=== PATIENT | female | born 1940 | race Caucasian/White ===

== ENCOUNTER 2016-10-05 11:35 | Inpatient (IN) | payer OTHER, MEDICARE ==
[~2016-10-05] VITALS: Ht 162.6 cm; Wt 93.9 kg
[2016-10-05 11:35] VITALS: BP 131/77; PULSE 116; RESP 16; TEMP 98.2; O2SAT 85
[2016-10-05] MEDS ORDERED: ALBUTEROL SULFATE 0.083% 2.5 MG/3 ML VIAL.NEB INH ONE (11:47)
[2016-10-05] MEDS ORDERED: IPRATROPIUM BROM 0.5 MG/2.5 ML VIAL.NEB (ATROVENT) INH ONE (11:47)
[2016-10-05] MEDS ORDERED: ALBUTEROL SULFATE 0.083% 2.5 MG/3 ML VIAL.NEB IH ONE (12:00)
[2016-10-05] MEDS ORDERED: methylPREDNISolone SOD SUCC/PF 62.5 MG/ML VIAL IVP ONE (12:00)
[2016-10-05] MEDS ORDERED: IPRATROPIUM BROM 0.5 MG/2.5 ML VIAL.NEB (ATROVENT) IH ONE (12:00)
[2016-10-05] MEDS ORDERED: MAGNESIUM SULFATE 50 ML IV ONE (12:00)
[2016-10-05] MEDS ORDERED: TRIA1CAP53 PO (12:14)
[2016-10-05] MEDS ORDERED: PRED20TA PO (12:14)
[2016-10-05] MEDS ORDERED: DILT180C69 PO (12:14)
[2016-10-05] MEDS ORDERED: GLUXR500 PO (12:14)
[2016-10-05] MEDS ORDERED: CAT.2 PO (12:14)
[2016-10-05] MEDS ORDERED: VALS320T10 PO (12:14)
[2016-10-05] MEDS ORDERED: ASPI325T2 PO (12:14)
[2016-10-05 12:26] LABS: BLOOD GAS PH 7.438 (7.350-7.450)
[2016-10-05 12:27] LABS: ABG TOTAL HEMOGLOBIN 18.3 G/dL (12.0-18.0); BLOOD GAS COHb% 1.5 % (0.5-1.5); BLOOD GAS HHB 21.5 % (0.0-6.0); BLOOD O2Hb% 76.9 % (94.0-97.0)
[2016-10-05 12:32] LABS: ANION GAP 9 (5-15); CALCIUM 8.8 mg/dL (8.4-11.0); CHLORIDE 94 mmol/L (98-107); GLUCOSE 143 mg/dL (70-99); POTASSIUM 3.9 mmol/L (3.5-5.1); SODIUM SERUM 132 mmol/L (136-145); UREA NITROGEN, BLOOD 20 mg/dL (8-21)
[2016-10-05 12:37] LABS: ALANINE AMINOTRANSFERASE 37 U/L (12-78); ALBUMIN 2.9 g/dL (3.4-4.8); ASPARTATE AMINOTRANSFERASE 49 U/L (10-37); TOTAL BILIRUBIN 0.4 mg/dL (0.0-1.0)
[2016-10-05 13:03] LABS: BASOPHILS % (AUTO) 0.1 % (0.0-2.0); HEMATOCRIT 52.8 % (36-48); HEMOGLOBIN 16.9 g/dL (12.0-16.0); LYMPHOCYTES # (AUTO) 1.8 K/uL (1.0-5.5); LYMPHOCYTES % (AUTO) 18.2 % (20.5-51.5); MEAN CORPUSCULAR HEMOGLOBIN 28 pg (27-31); MEAN CORPUSCULAR HGB CONC 32 % (32-36); MEAN CORPUSCULAR VOLUME 86 fL (79.0-98.0); MONOCYTES # (AUTO) 1.1 K/uL (0.0-1.0); MONOCYTES % (AUTO) 11.5 % (1.7-9.3); NEUTROPHILS # (AUTO) 6.9 K/uL (1.8-7.7); NEUTROPHILS % (AUTO) 70.2 % (40.0-70.0); PLATELET COUNT (AUTO) 116 K/uL (130-430); RED BLOOD CELL COUNT(AUTO) 6.13 MIL/uL (4.2-6.2); RED CELL DISTRIBUTION WIDTH 17.1 % (9.0-15.0); WHITE BLOOD COUNT (AUTO) 9.8 K/uL (4.8-10.8)
[2016-10-05] MEDS ORDERED: DEXTROSE 50% JECT 50 ML DISP.SYRIN IVP PRN ×2 (19:15→19:30)
[2016-10-05] MEDS ORDERED: ACETAMINOPHEN 325 MG TABLET PO PRN (19:15)
[2016-10-05] MEDS ORDERED: ONDANSETRON HCL 4 MG/2 ML VIAL IVP PRN (19:15)
[2016-10-05] MEDS ORDERED: IPRATROPIUM/ALBUTEROL SULFATE 3 ML AMPUL.NEB INH PRN (19:15)
[2016-10-05] MEDS ORDERED: ZOLPIDEM TARTRATE 5 MG TABLET PO PRN (19:30)
[2016-10-05] MEDS ORDERED: INSULIN REGULAR, HUMAN 100 UNITS/ML, 10 ML VIAL (novoLIN R) SUBCUT PRN (19:30)
[2016-10-05 19:40] VITALS: BP 125/71; PULSE 94; RESP 18; TEMP 96.9
[2016-10-05] MEDS: methylPREDNISolone SOD SUCC 40 MG/ML VIAL IVP SCH (20:22)
[2016-10-05] MEDS: cefTRIAXone 1 GM IVPB PREMIX 50 ML IV SCH (20:22)
[2016-10-05] MEDS: cloNIDine HCL 0.2 MG TABLET PO SCH (20:23)
[2016-10-05] MEDS: ASPIRIN 325 MG TABLET PO SCH (20:23)
[2016-10-05] MEDS: ENOXAPARIN SODIUM 40 MG/0.4 ML SYRINGE SUBCUT SCH (20:23)
[2016-10-05] MEDS: VALSARTAN 160 MG TABLET (DIOVAN) PO SCH (20:24)
[2016-10-05] MEDS: AZITHROMYCIN 250 MG TABLET PO SCH (21:34)
[2016-10-05 21:36] VITALS: BP 130/62; PULSE 94
[2016-10-05] MEDS: INSULIN REGULAR, HUMAN 100 UNITS/ML, 10 ML VIAL (novoLIN R) SUBCUT PRN (21:37)
[2016-10-05] MEDS: IPRATROPIUM/ALBUTEROL SULFATE 3 ML AMPUL.NEB INH SCH (23:27)
[2016-10-06] VITALS (7 sets, daily range): BP systolic 126–152; BP diastolic 72–90; PULSE 94–106; RESP 16–20; TEMP 96.6–98.4; O2SAT 88–98; Ht 162.6 cm; Wt 93.9 kg
[2016-10-06] MEDS: IPRATROPIUM/ALBUTEROL SULFATE 3 ML AMPUL.NEB INH SCH ×6 (03:25→23:30)
[2016-10-06 04:02] LABS: ANION GAP 7 (5-15); CALCIUM 8.7 mg/dL (8.4-11.0); CHLORIDE 98 mmol/L (98-107); CREATININE 0.85 mg/dL (0.55-1.30); GLUCOSE 224 mg/dL (70-99); POTASSIUM 4.1 mmol/L (3.5-5.1); SODIUM SERUM 137 mmol/L (136-145); UREA NITROGEN, BLOOD 32 mg/dL (8-21)
[2016-10-06 04:11] LABS: ALANINE AMINOTRANSFERASE 35 U/L (12-78); ALBUMIN 2.6 g/dL (3.4-4.8); ASPARTATE AMINOTRANSFERASE 42 U/L (10-37); TOTAL BILIRUBIN 0.3 mg/dL (0.0-1.0); TOTAL PROTEIN, SERUM 6.8 g/dL (6.4-8.3)
[2016-10-06] MEDS: INSULIN REGULAR, HUMAN 100 UNITS/ML, 10 ML VIAL (novoLIN R) SUBCUT PRN ×4 (06:19→22:40)
[2016-10-06 07:22] LABS: BASOPHILS % (AUTO) 0.2 % (0.0-2.0); HEMATOCRIT 52.3 % (36-48); HEMOGLOBIN 16.3 g/dL (12.0-16.0); LYMPHOCYTES # (AUTO) 1.8 K/uL (1.0-5.5); LYMPHOCYTES % (AUTO) 24.7 % (20.5-51.5); MEAN CORPUSCULAR HEMOGLOBIN 27 pg (27-31); MEAN CORPUSCULAR HGB CONC 31 % (32-36); MEAN CORPUSCULAR VOLUME 87 fL (79.0-98.0); MONOCYTES # (AUTO) 0.3 K/uL (0.0-1.0); MONOCYTES % (AUTO) 3.9 % (1.7-9.3); NEUTROPHILS # (AUTO) 5.1 K/uL (1.8-7.7); NEUTROPHILS % (AUTO) 71.2 % (40.0-70.0); PLATELET COUNT (AUTO) 129 K/uL (130-430); RED BLOOD CELL COUNT(AUTO) 6.01 MIL/uL (4.2-6.2); RED CELL DISTRIBUTION WIDTH 16.8 % (9.0-15.0); WHITE BLOOD COUNT (AUTO) 7.2 K/uL (4.8-10.8)
[2016-10-06] MEDS: methylPREDNISolone SOD SUCC 40 MG/ML VIAL IVP SCH ×3 (08:49→23:25)
[2016-10-06] MEDS: cloNIDine HCL 0.2 MG TABLET PO SCH ×2 (08:49→22:28)
[2016-10-06] MEDS: TRIAMTERENE/HYDROCHLOROTHIAZID 1 CAP CAPSULE (DYAZIDE37.5/25) PO SCH (08:49)
[2016-10-06] MEDS: AZITHROMYCIN 250 MG TABLET PO SCH (08:49)
[2016-10-06] MEDS: ASPIRIN 325 MG TABLET PO SCH (08:49)
[2016-10-06] MEDS: DILTIAZEM HCL 180 MG CAP.SR.24H PO SCH (08:50)
[2016-10-06] MEDS ORDERED: THIAMINE HCL 100 MG in NS 50 ML IV ONE (17:45)
[2016-10-06] MEDS: cefTRIAXone 1 GM IVPB PREMIX 50 ML IV SCH (18:24)
[2016-10-06] MEDS: ENOXAPARIN SODIUM 40 MG/0.4 ML SYRINGE SUBCUT SCH (22:27)
[2016-10-06] MEDS: VALSARTAN 160 MG TABLET (DIOVAN) PO SCH (22:28)
[2016-10-07] MEDS: IPRATROPIUM/ALBUTEROL SULFATE 3 ML AMPUL.NEB INH SCH ×3 (03:00→11:40)
[2016-10-07 04:18] VITALS: BP 141/86; PULSE 101; RESP 20; TEMP 97.6; O2SAT 94
[2016-10-07] MEDS: methylPREDNISolone SOD SUCC 40 MG/ML VIAL IVP SCH ×4 (06:37→23:15)
[2016-10-07] MEDS: INSULIN REGULAR, HUMAN 100 UNITS/ML, 10 ML VIAL (novoLIN R) SUBCUT PRN ×3 (06:39→17:50)
[2016-10-07 07:22] LABS: BASOPHILS % (AUTO) 0.1 % (0.0-2.0); HEMOGLOBIN 16.1 g/dL (12.0-16.0); LYMPHOCYTES % (AUTO) 10.2 % (20.5-51.5); MEAN CORPUSCULAR HEMOGLOBIN 27 pg (27-31); MEAN CORPUSCULAR HGB CONC 32 % (32-36); MEAN CORPUSCULAR VOLUME 87 fL (79.0-98.0); NEUTROPHILS # (AUTO) 16.4 K/uL (1.8-7.7); PLATELET COUNT (AUTO) 154 K/uL (130-430); RED BLOOD CELL COUNT(AUTO) 5.89 MIL/uL (4.2-6.2); RED CELL DISTRIBUTION WIDTH 17.2 % (9.0-15.0); WHITE BLOOD COUNT (AUTO) 19.4 K/uL (4.8-10.8)
[2016-10-07 07:47] LABS: ANION GAP 5 (5-15); CALCIUM 9.2 mg/dL (8.4-11.0); CHLORIDE 99 mmol/L (98-107); CREATININE 0.85 mg/dL (0.55-1.30); GLUCOSE 181 mg/dL (70-99); POTASSIUM 4.7 mmol/L (3.5-5.1); SODIUM SERUM 136 mmol/L (136-145); UREA NITROGEN, BLOOD 32 mg/dL (8-21)
[2016-10-07 08:00] VITALS: BP 137/66; PULSE 82; RESP 18; TEMP 97.8; O2SAT 91
[2016-10-07] MEDS: DILTIAZEM HCL 180 MG CAP.SR.24H PO SCH (09:29)
[2016-10-07] MEDS: NEPHROVITE, (FOLIC ACID/VITAMIN B COMP W-C 1 TAB) PO SCH (09:29)
[2016-10-07] MEDS: TRIAMTERENE/HYDROCHLOROTHIAZID 1 CAP CAPSULE (DYAZIDE37.5/25) PO SCH (09:30)
[2016-10-07] MEDS: AZITHROMYCIN 250 MG TABLET PO SCH (09:30)
[2016-10-07] MEDS: cloNIDine HCL 0.2 MG TABLET PO SCH ×2 (09:31→20:59)
[2016-10-07] MEDS: THIAMINE HCL 100 MG TABLET PO SCH (09:32)
[2016-10-07] MEDS: ASPIRIN 325 MG TABLET PO SCH (09:32)
[2016-10-07 12:00] VITALS: BP 139/81; PULSE 95; RESP 16; TEMP 97.8; O2SAT 91
[2016-10-07 12:16] LABS: NEUTROPHILS % (AUTO) 84.7 % (40.0-70.0)
[2016-10-07 15:19] LABS: BLOOD GAS PH 7.383 (7.350-7.450)
[2016-10-07 15:20] LABS: ABG TOTAL HEMOGLOBIN 17.4 G/dL (12.0-18.0); BLOOD GAS BASE EXCESS 3.1 mmol/L (-3.0-3.0); BLOOD GAS COHb% 0.7 % (0.5-1.5); BLOOD O2Hb% 84.9 % (94.0-97.0)
[2016-10-07 16:27] VITALS: BP 141/73; PULSE 88; RESP 16; TEMP 98; O2SAT 89
[2016-10-07] MEDS: cefTRIAXone 1 GM IVPB PREMIX 50 ML IV SCH (17:34)
[2016-10-07 19:25] VITALS: BP 137/83; PULSE 89; PULSE 91; RESP 20; TEMP 97.1; O2SAT 91
[2016-10-07] MEDS: IPRATROPIUM BROM 0.5 MG/2.5 ML VIAL.NEB (ATROVENT) INH SCH ×2 (19:59→23:31)
[2016-10-07] MEDS: ENOXAPARIN SODIUM 40 MG/0.4 ML SYRINGE SUBCUT SCH (20:58)
[2016-10-07] MEDS: VALSARTAN 160 MG TABLET (DIOVAN) PO SCH (20:58)
[2016-10-07] MEDS: LEVALBUTEROL HCL 0.63 MG/3 ML VIAL.NEB INH SCH (23:32)
[2016-10-08] VITALS: BP 136/81; PULSE 91; RESP 17; TEMP 99.7; O2SAT 95
[2016-10-08] MEDS: IPRATROPIUM BROM 0.5 MG/2.5 ML VIAL.NEB (ATROVENT) INH SCH ×6 (03:00→22:43)
[2016-10-08 04:00] VITALS: BP 136/72; PULSE 82; RESP 17; TEMP 96.9; O2SAT 92
[2016-10-08] MEDS: methylPREDNISolone SOD SUCC 40 MG/ML VIAL IVP SCH ×4 (05:28→23:53)
[2016-10-08] MEDS: INSULIN REGULAR, HUMAN 100 UNITS/ML, 10 ML VIAL (novoLIN R) SUBCUT PRN ×4 (06:50→21:45)
[2016-10-08 07:40] LABS: BASOPHILS % (AUTO) 0.1 % (0.0-2.0); HEMATOCRIT 49.5 % (36-48); HEMOGLOBIN 15.9 g/dL (12.0-16.0); LYMPHOCYTES # (AUTO) 2.2 K/uL (1.0-5.5); LYMPHOCYTES % (AUTO) 11.9 % (20.5-51.5); MEAN CORPUSCULAR HEMOGLOBIN 27 pg (27-31); MEAN CORPUSCULAR HGB CONC 32 % (32-36); MEAN CORPUSCULAR VOLUME 84 fL (79.0-98.0); MONOCYTES # (AUTO) 0.7 K/uL (0.0-1.0); MONOCYTES % (AUTO) 3.8 % (1.7-9.3); NEUTROPHILS # (AUTO) 15.4 K/uL (1.8-7.7); NEUTROPHILS % (AUTO) 84.2 % (40.0-70.0); PLATELET COUNT (AUTO) 184 K/uL (130-430); RED BLOOD CELL COUNT(AUTO) 5.87 MIL/uL (4.2-6.2); RED CELL DISTRIBUTION WIDTH 17.4 % (9.0-15.0); WHITE BLOOD COUNT (AUTO) 18.3 K/uL (4.8-10.8)
[2016-10-08 07:53] VITALS: BP 125/85; PULSE 88
[2016-10-08] MEDS: LEVALBUTEROL HCL 0.63 MG/3 ML VIAL.NEB INH SCH ×3 (07:53→22:44)
[2016-10-08] MEDS: TRIAMTERENE/HYDROCHLOROTHIAZID 1 CAP CAPSULE (DYAZIDE37.5/25) PO SCH (08:10)
[2016-10-08] MEDS: cloNIDine HCL 0.2 MG TABLET PO SCH ×2 (08:11→21:39)
[2016-10-08] MEDS: AZITHROMYCIN 250 MG TABLET PO SCH (08:11)
[2016-10-08] MEDS: THIAMINE HCL 100 MG TABLET PO SCH (08:11)
[2016-10-08] MEDS: DILTIAZEM HCL 180 MG CAP.SR.24H PO SCH (08:11)
[2016-10-08] MEDS: NEPHROVITE, (FOLIC ACID/VITAMIN B COMP W-C 1 TAB) PO SCH (08:11)
[2016-10-08] MEDS: ASPIRIN 325 MG TABLET PO SCH (08:11)
[2016-10-08 08:23] LABS: ANION GAP 8 (5-15); CALCIUM 9.4 mg/dL (8.4-11.0); CHLORIDE 96 mmol/L (98-107); GLUCOSE 195 mg/dL (70-99); POTASSIUM 4.6 mmol/L (3.5-5.1); SODIUM SERUM 134 mmol/L (136-145); UREA NITROGEN, BLOOD 33 mg/dL (8-21)
[2016-10-08 11:34] VITALS: BP 137/72; PULSE 93; RESP 20; TEMP 97.2; O2SAT 95
[2016-10-08 16:22] VITALS: BP 153/73; PULSE 102; RESP 20; TEMP 97.3; O2SAT 90
[2016-10-08] MEDS: cefTRIAXone 1 GM IVPB PREMIX 50 ML IV SCH (18:06)
[2016-10-08 19:39] VITALS: BP 152/77; PULSE 99; RESP 20; TEMP 96; O2SAT 92
[2016-10-08] MEDS: VALSARTAN 160 MG TABLET (DIOVAN) PO SCH (21:40)
[2016-10-08] MEDS: ENOXAPARIN SODIUM 40 MG/0.4 ML SYRINGE SUBCUT SCH (21:40)
[2016-10-09 01:25] VITALS: BP 140/95; PULSE 93; RESP 19; TEMP 96.9; O2SAT 95
[2016-10-09] MEDS: IPRATROPIUM BROM 0.5 MG/2.5 ML VIAL.NEB (ATROVENT) INH SCH ×6 (03:00→22:58)
[2016-10-09 03:46] VITALS: BP 150/80; PULSE 96; RESP 20; TEMP 97.2; O2SAT 93
[2016-10-09] MEDS: methylPREDNISolone SOD SUCC 40 MG/ML VIAL IVP SCH ×3 (06:31→17:35)
[2016-10-09] MEDS: INSULIN REGULAR, HUMAN 100 UNITS/ML, 10 ML VIAL (novoLIN R) SUBCUT PRN ×4 (06:35→21:23)
[2016-10-09 06:47] LABS: BASOPHILS % (AUTO) 0.2 % (0.0-2.0); HEMOGLOBIN 16.1 g/dL (12.0-16.0); MEAN CORPUSCULAR HEMOGLOBIN 27 pg (27-31); MEAN CORPUSCULAR HGB CONC 31 % (32-36); MONOCYTES # (AUTO) 0.6 K/uL (0.0-1.0); MONOCYTES % (AUTO) 3.2 % (1.7-9.3); NEUTROPHILS # (AUTO) 15.4 K/uL (1.8-7.7); PLATELET COUNT (AUTO) 201 K/uL (130-430); RED BLOOD CELL COUNT(AUTO) 5.96 MIL/uL (4.2-6.2)
[2016-10-09 06:51] LABS: ANION GAP 4 (5-15); CALCIUM 9.2 mg/dL (8.4-11.0); CHLORIDE 96 mmol/L (98-107); CREATININE 0.72 mg/dL (0.55-1.30); GLUCOSE 199 mg/dL (70-99); POTASSIUM 5.4 mmol/L (3.5-5.1); SODIUM SERUM 132 mmol/L (136-145); UREA NITROGEN, BLOOD 35 mg/dL (8-21)
[2016-10-09 07:44] LABS: MEAN CORPUSCULAR VOLUME 87 fL (79.0-98.0)
[2016-10-09] MEDS: LEVALBUTEROL HCL 0.63 MG/3 ML VIAL.NEB INH SCH ×3 (07:52→22:59)
[2016-10-09 08:06] VITALS: BP 148/80; PULSE 97; RESP 18; TEMP 97.2; O2SAT 89
[2016-10-09] MEDS: NEPHROVITE, (FOLIC ACID/VITAMIN B COMP W-C 1 TAB) PO SCH (08:26)
[2016-10-09] MEDS: DILTIAZEM HCL 180 MG CAP.SR.24H PO SCH (08:26)
[2016-10-09] MEDS: TRIAMTERENE/HYDROCHLOROTHIAZID 1 CAP CAPSULE (DYAZIDE37.5/25) PO SCH (08:27)
[2016-10-09] MEDS: cloNIDine HCL 0.2 MG TABLET PO SCH ×2 (08:27→21:13)
[2016-10-09] MEDS: ASPIRIN 325 MG TABLET PO SCH (08:28)
[2016-10-09] MEDS: AZITHROMYCIN 250 MG TABLET PO SCH (08:29)
[2016-10-09] MEDS: THIAMINE HCL 100 MG TABLET PO SCH (08:29)
[2016-10-09 11:38] LABS: NEUTROPHILS % (AUTO) 85.6 % (40.0-70.0)
[2016-10-09 11:55] VITALS: BP 140/79; PULSE 104; RESP 22; TEMP 97.2; O2SAT 91
[2016-10-09 16:27] VITALS: BP 156/91; PULSE 100; RESP 20; TEMP 97; O2SAT 91
[2016-10-09] MEDS: cefTRIAXone 1 GM IVPB PREMIX 50 ML IV SCH (18:36)
[2016-10-09 20:00] VITALS: BP 147/95; PULSE 101; RESP 22; TEMP 97.1; O2SAT 93
[2016-10-09] MEDS: DILTIAZEM HCL 60 MG TABLET PO SCH (21:12)
[2016-10-09] MEDS: VALSARTAN 160 MG TABLET (DIOVAN) PO SCH (21:13)
[2016-10-10] MEDS: methylPREDNISolone SOD SUCC 40 MG/ML VIAL IVP SCH ×4 (00:45→18:21)
[2016-10-10 00:56] VITALS: BP 141/71; PULSE 79; RESP 21; TEMP 96.6; O2SAT 91
[2016-10-10] MEDS: IPRATROPIUM BROM 0.5 MG/2.5 ML VIAL.NEB (ATROVENT) INH SCH ×4 (03:00→15:44)
[2016-10-10 04:00] VITALS: BP 136/74; PULSE 82; RESP 20; TEMP 96.8; O2SAT 92
[2016-10-10] MEDS: INSULIN REGULAR, HUMAN 100 UNITS/ML, 10 ML VIAL (novoLIN R) SUBCUT PRN ×3 (06:47→18:00)
[2016-10-10 06:49] LABS: BASOPHILS % (AUTO) 0.1 % (0.0-2.0); HEMOGLOBIN 15.8 g/dL (12.0-16.0)
[2016-10-10 06:51] LABS: ANION GAP 4 (5-15); CHLORIDE 95 mmol/L (98-107); CREATININE 0.74 mg/dL (0.55-1.30); GLUCOSE 176 mg/dL (70-99); POTASSIUM 4.8 mmol/L (3.5-5.1); SODIUM SERUM 133 mmol/L (136-145); UREA NITROGEN, BLOOD 36 mg/dL (8-21)
[2016-10-10 07:14] LABS: HEMATOCRIT 49.9 % (36-48); LYMPHOCYTES # (AUTO) 2.1 K/uL (1.0-5.5); LYMPHOCYTES % (AUTO) 11.1 % (20.5-51.5); MEAN CORPUSCULAR HEMOGLOBIN 27 pg (27-31); MEAN CORPUSCULAR HGB CONC 32 % (32-36); MEAN CORPUSCULAR VOLUME 86 fL (79.0-98.0); MONOCYTES # (AUTO) 0.2 K/uL (0.0-1.0); MONOCYTES % (AUTO) 1.1 % (1.7-9.3); NEUTROPHILS # (AUTO) 16.9 K/uL (1.8-7.7); NEUTROPHILS % (AUTO) 87.7 % (40.0-70.0); PLATELET COUNT (AUTO) 197 K/uL (130-430); RED BLOOD CELL COUNT(AUTO) 5.82 MIL/uL (4.2-6.2); RED CELL DISTRIBUTION WIDTH 17.1 % (9.0-15.0); WHITE BLOOD COUNT (AUTO) 19.2 K/uL (4.8-10.8)
[2016-10-10] MEDS: LEVALBUTEROL HCL 0.63 MG/3 ML VIAL.NEB INH SCH ×2 (07:24→15:44)
[2016-10-10] MEDS: metFORMIN HCL 500 MG TABLET PO SCH ×2 (08:56→17:57)
[2016-10-10] MEDS: DILTIAZEM HCL 60 MG TABLET PO SCH (08:58)
[2016-10-10] MEDS ORDERED: ASPIRIN 325 MG TABLET PO SCH (09:00)
[2016-10-10] MEDS ORDERED: FUROSEMIDE 40 MG TABLET PO SCH (09:00)
[2016-10-10] MEDS ORDERED: ASPIRIN 325 MG TABLET (ECOTRIN) PO SCH (09:00)
[2016-10-10] MEDS: THIAMINE HCL 100 MG TABLET PO SCH (09:01)
[2016-10-10] MEDS: TRIAMTERENE/HYDROCHLOROTHIAZID 1 CAP CAPSULE (DYAZIDE37.5/25) PO SCH (09:01)
[2016-10-10] MEDS: cloNIDine HCL 0.2 MG TABLET PO SCH (09:02)
[2016-10-10] MEDS: NEPHROVITE, (FOLIC ACID/VITAMIN B COMP W-C 1 TAB) PO SCH (09:03)
[2016-10-10] MEDS: AZITHROMYCIN 250 MG TABLET PO SCH (09:04)
[2016-10-10 12:20] VITALS: BP 122/72; PULSE 86; RESP 20; TEMP 97.2; O2SAT 92
[2016-10-10 16:32] VITALS: BP 121/59; PULSE 77; RESP 18; TEMP 97; O2SAT 92
[2016-10-10 16:42] VITALS: BP 140/78; PULSE 109; RESP 20; TEMP 96.8; O2SAT 92
[2016-10-10] MEDS: cefTRIAXone 1 GM IVPB PREMIX 50 ML IV SCH (18:22)
== END 2016-10-10 19:28 | DRG 193 ==
LOC: EDBD 11:35 → SED 11:35 → STU 16:01
PROVIDERS: ADMIT Internal Medicine; ATTEND Internal Medicine
DX: J18.9 Pneumonia, unspecified organism (principal); I50.31 Acute diastolic (congestive) heart failure; J96.21 Acute and chronic respiratory failure with hypoxia; J44.1 Chronic obstructive pulmonary disease with (acute) exacerbation; E87.1 Hypo-osmolality and hyponatremia; E44.1 Mild protein-calorie malnutrition; J44.0 Chronic obstructive pulmonary disease with (acute) lower respiratory infection; I11.0 Hypertensive heart disease with heart failure; E11.9 Type 2 diabetes mellitus without complications; E66.9 Obesity, unspecified; F17.210 Nicotine dependence, cigarettes, uncomplicated; J20.9 Acute bronchitis, unspecified; E78.5 Hyperlipidemia, unspecified; D75.1 Secondary polycythemia; I27.81 Cor pulmonale (chronic); Z66 Do not resuscitate; E87.5 Hyperkalemia; Z99.81 Dependence on supplemental oxygen; Z88.2 Allergy status to sulfonamides; Z90.710 Acquired absence of both cervix and uterus; Z68.35 Body mass index [BMI] 35.0-35.9, adult
CPT/HCPCS: 36415; 36600; 71010; 71250-TC; 80048; 80053; 82803-TC; 82962; 83735-TC; 83880; 84484; 85025; 93005; 93306; 93970; 94640; 94760; 96365; 96366; 96375; 97110-GP; 97116-GP; 97530-GP; 99291; J0696; J1030; J1650; J1815; J2930; J3411; J3475; J7050; Q0144